=== PATIENT | female | born 1975 | race Caucasian/White ===

== ENCOUNTER → 2024-04-22 15:24 | Outpatient (REF) | payer OTHER, SELFPAY | LOC: WDC 15:24 | PROVIDERS: ATTENDING PHYSICIAN Family Medicine | DX: Z12.31 Encounter for screening mammogram for malignant neoplasm of breast (principal) | CPT/HCPCS: 77063; 77067 ==

== ENCOUNTER → 2024-09-09 13:12 | Outpatient (REF) | payer OTHER, SELFPAY | LOC: WDC 13:12 | PROVIDERS: ATTENDING PHYSICIAN Family Medicine | DX: R92.2 Inconclusive mammogram (principal) | CPT/HCPCS: 76641 ==

== ENCOUNTER 2025-02-24 14:10 | Outpatient (RCR) | payer OTHER, SELFPAY | END 2025-02-24 23:59 | disposition home or self-care (01) | LOC: RPT 14:10 | PROVIDERS: ATTENDING PHYSICIAN Urology; FAMILY PHYSICIAN Family Medicine | DX: N39.41 Urge incontinence (principal); N39.3 Stress incontinence (female) (male); M62.89 Other specified disorders of muscle; N39.42 Incontinence without sensory awareness; Z73.6 Limitation of activities due to disability | CPT/HCPCS: 97014; 97112; 97140; 97162; 97530 ==

== ENCOUNTER 2025-03-09 14:38 | Outpatient (RCR) | payer OTHER, SELFPAY | END 2025-03-09 23:59 | disposition home or self-care (01) | LOC: RPT 14:38 | PROVIDERS: ATTENDING PHYSICIAN Urology; FAMILY PHYSICIAN Family Medicine | DX: N39.41 Urge incontinence (principal); N39.3 Stress incontinence (female) (male); M62.89 Other specified disorders of muscle; N39.42 Incontinence without sensory awareness; Z73.6 Limitation of activities due to disability | CPT/HCPCS: 97014; 97112; 97530 ==

== ENCOUNTER 2025-03-31 13:10 | Outpatient (RCR) | payer OTHER, SELFPAY | END 2025-03-31 23:59 | disposition home or self-care (01) | LOC: RPT 13:10 | PROVIDERS: ATTENDING PHYSICIAN Urology; FAMILY PHYSICIAN Family Medicine | DX: N39.41 Urge incontinence (principal); N39.3 Stress incontinence (female) (male); M62.89 Other specified disorders of muscle; N39.42 Incontinence without sensory awareness; Z73.6 Limitation of activities due to disability | CPT/HCPCS: 97112; 97530 ==

== ENCOUNTER → 2025-04-25 15:40 | Outpatient (REF) | payer OTHER, SELFPAY | LOC: WDC 15:40 | PROVIDERS: ATTENDING PHYSICIAN Family Medicine | DX: Z12.31 Encounter for screening mammogram for malignant neoplasm of breast (principal) | CPT/HCPCS: 77063; 77067 ==